=== PATIENT | male | born 1945 | race Caucasian/White ===

== ENCOUNTER 2023-03-31 09:43 | Day surgery (SDC) | payer OTHER ==
[~2023-03-31] VITALS: Ht 152.4 cm; Wt 97.1 kg
[~2023-03-31 09:43] MED LIST: ALEV220T22 PO; AMLO1TAB24 PO; ASPI81TA26 PO; ATOR80TA59 PO; BSS IRRIG/VANCO(10MG)/TOBRA(5MG)/EPINEPH(1:1000-0.5CC)500ML BAG-ORONLY IR ONE; CEFUROXIME 1MG/0.1ML INTRACAMERAL INJ As Ordered ONE; CHOL50003 PO; CYCLOPENTOLATE 1% OPHTH SOLN 2ML BTL OS SCH; DORZ2SOL4 OU; GLIP5TAB17 PO; HYDR-3490 PO; LIDOCAINE 1% SDV 5ML VIAL As Ordered ONE; LIDOCAINE 3.5 % 1ML OPHTH TOPICAL GEL OU ONE; LOSA50TA28 PO; METF10004 PO; METO50TA7 PO; MIDAZOLAM INJ 2MG/2ML VIAL As Ordered ONE; OFLOXACIN 0.3 % (OCUFLOX) OPTH SOL 5ML OS ONE; PHENYLEPHRINE 10% OPHTH SOL 5ML OS PRN; PHENYLEPHRINE 2.5% OPHTH SOL 2ML OS SCH; TAMS1CAP17 PO; TROPICAMIDE 1% OPHTH SOLN 15ML OS SCH; XALA0.007 OU; fentaNYL 100 MCG/2 ML INJECTION As Ordered ONE; mitoMYcin 0.2 MG/VIAL KIT FOR OPHTHALMIC USE As Ordered ONE
[2023-03-31 11:40] VITALS: BP 150/67; TEMP 96.8; O2SAT 92
== END 2023-03-31 12:07 | disposition home or self-care (01) ==
LOC: M SDC 09:43
PROVIDERS: ATTEND Ophthalmology
DX: E11.36 Type 2 diabetes mellitus with diabetic cataract (principal); H26.9 Unspecified cataract; H40.9 Unspecified glaucoma; I10 Essential (primary) hypertension; J44.9 Chronic obstructive pulmonary disease, unspecified; E78.00 Pure hypercholesterolemia, unspecified; Z79.82 Long term (current) use of aspirin; Z79.84 Long term (current) use of oral hypoglycemic drugs; Z79.899 Other long term (current) drug therapy
CPT/HCPCS: 66183; 66984; C1783; J0697; J2250; J3010; J7315; V2632

== ENCOUNTER 2023-06-02 08:45 | Day surgery (SDC) | payer OTHER ==
[~2023-06-02] VITALS: Ht 160 cm; Wt 97.9 kg
[~2023-06-02 08:45] MED LIST changes: +CYCLOPENTOLATE 1% OPHTH SOLN 2ML BTL OD SCH; -CYCLOPENTOLATE 1% OPHTH SOLN 2ML BTL OS SCH; +OFLOXACIN 0.3 % (OCUFLOX) OPTH SOL 5ML OD ONE; -OFLOXACIN 0.3 % (OCUFLOX) OPTH SOL 5ML OS ONE; +PHENYLEPHRINE 10% OPHTH SOL 5ML OD PRN; -PHENYLEPHRINE 10% OPHTH SOL 5ML OS PRN; +PHENYLEPHRINE 2.5% OPHTH SOL 2ML OD SCH; -PHENYLEPHRINE 2.5% OPHTH SOL 2ML OS SCH; +TROPICAMIDE 1% OPHTH SOLN 15ML OD SCH; -TROPICAMIDE 1% OPHTH SOLN 15ML OS SCH; -mitoMYcin 0.2 MG/VIAL KIT FOR OPHTHALMIC USE As Ordered ONE
[2023-06-02] MEDS ORDERED: LIDOCAINE 1% SDV 5ML VIAL SC PRN (10:10)
[2023-06-02 11:30] VITALS: BP 165/77; TEMP 97.5; O2SAT 95
== END 2023-06-02 12:35 | disposition home or self-care (01) ==
LOC: M SDC 08:45
PROVIDERS: ATTEND Ophthalmology
DX: H25.11 Age-related nuclear cataract, right eye (principal); H40.1112 Primary open-angle glaucoma, right eye, moderate stage; E11.9 Type 2 diabetes mellitus without complications; I10 Essential (primary) hypertension; E78.00 Pure hypercholesterolemia, unspecified; J44.9 Chronic obstructive pulmonary disease, unspecified; Z79.899 Other long term (current) drug therapy; Z79.82 Long term (current) use of aspirin; Z79.84 Long term (current) use of oral hypoglycemic drugs; Z87.891 Personal history of nicotine dependence
CPT/HCPCS: 66991; C1783; J0697; J2250; J3010; V2632